=== PATIENT | male | born 1995 | race Caucasian/White ===

== ENCOUNTER 2017-01-02 02:53 | Emergency (ER) | payer OTHER ==
[~2017-01-02] VITALS: Ht 175.3 cm; Wt 76.0 kg
[2017-01-02 02:59] VITALS: TEMP 36.4; Ht 175.3 cm; Wt 76.0 kg
[2017-01-02] MEDS ORDERED: LIDOCAINE/EPINEPHRINE 1% 20 ML VIAL ONE (03:03)
[2017-01-02] MEDS ORDERED: LIDOCAINE/EPINEPHRINE 1% 20 ML VIAL INFIL ONE (03:15)
[2017-01-02 03:37] VITALS: BP 129/82; PULSE 113; O2SAT 100
--- NOTE | 2017-01-02 03:52 | EMERGENCY ROOM VISIT NOTE ---
ED Visit Note First contact with patient: 03:02 CHIEF COMPLAINT: Scalp laceration HISTORY OF PRESENT ILLNESS: This 21-year-old male patient presents emergency department after striking the head on the faucet while in the shower about 30 minutes ago. There was no loss of consciousness, blurry vision, nausea, vomiting, or unusual behavior afterwards. The patient rates the pain as dull and 5/10. The patient denies neck pain. The bleeding has stopped. The patient 's tetanus shot is reportedly up to date. REVIEW OF SYSTEMS: A 6 system review of systems was completed with positives and pertinent negatives listed in the HPI. ALLERGIES: Penicillin MEDICATIONS: No chronic medication PMH: Otherwise healthy SOCIAL HISTORY: Student who lives locally PHYSICAL EXAM: Vital Signs: Reviewed Nurse's notes, vital signs stable. GENERAL : White male, in no acute distress, well-developed, well-nourished. NEURO: Patient was alert and oriented to person place and time. Sensory and motor functions grossly intact. No focal neurologic deficits. Normal sensation to light and sharp touch. EYES: PERRLA. EOMI. Fundoscopic exam without hemorrhages or papilledema. EARS: No hemotympanum. No rodriges sign or mastoid tenderness. SKIN: There is a 4.5 cm laceration on the posterior right occiput whose edges are gaping apart. There is no significant bleeding. The wound is clean and there are no deep structures present. NECK: Supple, cervical spine nontender to palpation. EMERGENCY DEPARTMENT COURSE: I examined the patient. Verbal consent was obtained to perform the procedure. Using sterile technique the wound was cleaned with Betadine. The area was sterilely draped. 6 ml of 1% buffered lidocaine with epinephrine was used to anesthetize the patient's scalp. Once the patient was numb, the wound was copiously irrigated under pressure with sterile saline. The wound was explored and there were no deep structures present. The laceration was repaired using 4 yuly with the wound edges being well approximated. The patient tolerated the procedure well. The bleeding stopped. The area was cleaned with sterile saline and dressed with bacitracin ointment. The patient was discharged home in good condition. Current/Historical Medications No Active Prescriptions or Reported Meds Allergies Coded Allergies: Penicillins (Verified Allergy, Unknown, RASH, 11/29/14) Vital Signs Date Time Temp Pulse Resp B/P Pulse Ox O2 Delivery O2 Flow Rate FiO2 01/02/17 03:37 113 22 129/82 100 Room Air 01/02/17 02:59 36.4 116 18 128/81 96 Room Air Departure Information Impression Primary Impression: Laceration of scalp Dispostion Home / Self-Care Condition GOOD Prescriptions No Active Prescriptions or Reported Meds Forms HOME CARE DOCUMENTATION FORM, IMPORTANT VISIT INFORMATION Patient Instructions My [facility], ED Laceration All, ED Scar Tips to Minimize Additional Instructions Keep wound clean and dry. Do not allow any crusting or dried blood to accumulate on yuly. If this occurs, use a mild soap/water on a Q-tip to clean the wound. Do not use Peroxide to clean the wound as this can delay healing Use an antibiotic ointment like Bacitracin for 3-4 days, then let wound dry. You may bathe and shower as normal, but DO NOT SOAK the wound. Staple removal in about 8-10 days with your Family Doctor or in the ER. Return sooner for any signs of infection, increasing redness, swelling, or drainage.
== END 2017-01-02 03:40 | disposition home or self-care (01) ==
LOC: C.EDB 02:54
DX: S01.01XA Laceration without foreign body of scalp, initial encounter (principal); W22.09XA Striking against other stationary object, initial encounter; Y93.E1 Activity, personal bathing and showering; Y99.8 Other external cause status